=== PATIENT | female | born 1980 | race Caucasian/White ===

== ENCOUNTER 2016-09-25 06:33 | Day surgery (SDC) | payer OTHER ==
[2016-09-23 11:09] LABS: A/G RATIO 0.8 (0.7-1.9); ALBUMIN 3.4 G/DL (3.5-5.0); ALKALINE PHOSPHATASE 104 U/L (45-117); BUN (BLOOD UREA NITROGEN) 12 MG/DL (6-23); CALCIUM, SERUM 8.9 MG/DL (8.5-10.4); CHLORIDE, SERUM 106 MMOL/L (96-112); CO2 (CARBON DIOXIDE) 27 MMOL/L (24-34); CREATININE 0.74 MG/DL (0.55-1.02); GFR AFRICAN AMERICAN 120 ML/MIN (>=60); GFR NON AFRICAN AMERICAN 103 ML/MIN (>=60); GLOBULIN 4.3 G/DL (2.5-4.1); GLUCOSE, SERUM 99 MG/DL (60-99); POTASSIUM, SERUM 3.9 MMOL/L (3.5-5.3); SGOT(AST) 11 U/L (5-40); SGPT(ALT) 16 U/L (5-65); SODIUM, SERUM 141 MMOL/L (135-148); TOTAL BILIRUBIN 0.3 MG/DL (0-1.2); TOTAL PROTEIN 7.7 G/DL (6.0-8.5)
--- NOTE | ~2016-09-25 | OP ---
Record Of Operation [facility] [address] [place]. [address] NAME: ROBERTO MARTIN : 78 STATUS : REG [facility] [place] PAT#: [id number] AGE: 36 ADM/REG DATE : 09/25/16 MR#: [id number] REPORT SERV DATE: 09/25/16 DICTATED BY: BJ COSTA DATE: 09/25/16 REPORT STATUS : Draft TRANSCRIBED BY: MODL DATE: 09/25/16 DATE OF PROCEDURE: 09/25/2016 PREOPERATIVE DIAGNOSES: 1. Cholelithiasis with chronic cholecystitis. 2. Anxiety. POSTOPERATIVE DIAGNOSES: 1. Cholelithiasis with chronic cholecystitis. 2. Anxiety. PROCEDURE: Laparoscopic cholecystectomy. ANESTHESIA: General. SURGEON: Bj Costa M.D. TECHNICAL SUPPORT ASSOCIATE: Ezekiel. COMPLICATIONS: None. DRAINS: None. ESTIMATED BLOOD LOSS: Less than 20 mL. FINDINGS: 1. The patient was noted to have a thickened gallbladder wall, and normal preoperative liver function studies, and a very small cystic duct without dilatation. 2. The patient's common bile duct was visualized during the procedure and there was no gross encroachment upon the common bile duct. 3. The patient was noted to have multiple large stones impacted in the fundus of the gallbladder. OPERATIVE TECHNIQUE: The patient was brought to the operating room and placed on the table in supine position. She had preoperative IV antibiotics. She had sequential hose in place. She voided prior to the procedure. She underwent general endotracheal anesthesia and was prepped and draped in sterile fashion. A time-out was completed. Local anesthesia was instilled to the periumbilical skin. A 15 blade knife was used to make incision through the base of the umbilicus. The skin and fascia were elevated, and a Veress needle was inserted, and a water drop test was safely performed. An 11 mm trocar was inserted through the umbilicus followed by the laparoscope. There was no evidence of Veress or trocar injury. The patient was then placed in reverse Trendelenburg and rolled to the left. An 11 mm subxiphoid and two 5 mm right upper quadrant trocars were placed under direct visualization. The gallbladder fundus was grasped and elevated over the liver edge as the infundibulum was retracted inferolaterally. The cystic duct gallbladder junction was identified on its lateral aspect and circumferentially dissected. This dissection continued until the cystic Record Of Operation [facility] [address] [place]. [address] NAME: ROBERTO MARTIN : 78 STATUS : REG [facility] [place] PAT#: [id number] AGE: 36 ADM/REG DATE : 09/25/16 MR#: [id number] REPORT SERV DATE: 09/25/16 DICTATED BY: BJ COSTA DATE: 09/25/16 REPORT STATUS : Draft TRANSCRIBED BY: RACHEL DATE: 09/25/16 duct was seen in 360-degree fashion. Dissection more medial revealed the cystic artery on the gallbladder wall. It was encircled as well using blunt dissection with the [place] dissector, and after it was seen circumferentially, it was clipped twice proximally and cauterized distally on the gallbladder wall. The gallbladder was then removed from the fossa using electrocautery hook and extracted through the umbilicus. This required extension of the fascial incision, due to the size of the stones. The laparoscope and trocar were reinserted and examination of the hepatic fossa was noted to be hemostatic. The clips were noted to be intact without encroachment in the common bile duct. There was no evidence of any bleeding, biliary spillage, or other visual abnormalities. At this point, all the instruments and trocars were removed under direct visualization as the pneumoperitoneum was aspirated. The umbilical fascia was reapproximated in a figure-of- eight Vicryl suture. Skin edges were reapproximated using absorbable subcuticular Monocryl sutures. Dermabond was applied. She was extubated and taken to the recovery room in stable condition. All sponge and needle counts were reported correct. /RACHEL Bj Costa M.D. / [id number] CC: Brittney Ramirez M.D.
[~2016-09-25 06:33] MED LIST: CELEXA20 PO; JUNEL 1/20 PO
== END 2016-09-25 13:37 | disposition home or self-care (01) ==
LOC: SDC 06:33
PROVIDERS: Surgery
PROC: 0FT44ZZ Resection of Gallbladder, Percutaneous Endoscopic Approach (ICD-10-PCS; principal; 2016-09-25 07:45)
DX: K80.10 Calculus of gallbladder with chronic cholecystitis without obstruction (principal); G43.909 Migraine, unspecified, not intractable, without status migrainosus; E78.5 Hyperlipidemia, unspecified; F41.9 Anxiety disorder, unspecified; K21.9 Gastro-esophageal reflux disease without esophagitis; K58.9 Irritable bowel syndrome, unspecified; Z79.899 Other long term (current) drug therapy; E78.00 Pure hypercholesterolemia, unspecified; Z98.890 Other specified postprocedural states
CPT/HCPCS: 80053; 84703; 88304; A9270-GY; J0690; J1885; J2250; J2405; J2710; J3010; Q9967